=== PATIENT | male | born 1950 | race Caucasian/White ===

== ENCOUNTER 2017-06-05 11:10 | Emergency (ER) | payer OTHER, MEDICARE ==
[2017-06-05] MEDS ORDERED: NORMAL SALINE 1,000 ML IV ONE ×2 (11:19→12:18)
--- NOTE | 2017-06-05 11:28 | ERNOTE ---
Dizziness ER Record Presenting Symptoms: dizziness Time Seen by Provider: 06/05/17 11:10 Source: patient, family Exam Limitations: no limitations Immunizations: IMMUNIZATION HX Immunizations Up to Date Yes History of Influenza Vaccine Yes Hx Pneumococcal Vaccination No Allergies/Adverse Reactions: Allergies Allergy/AdvReac Type Severity Reaction Status Date / Time No Known Allergies Allergy Unverified 06/05/17 11:21 - History of Present Illness Narrative: Patient had been picking green beans in the hot,humid weather for over an hours when he started to feel lightheaded, had tunnel vision and felt that the light was too bright. He is brought in by his daughter who is concerned as he had two AR in the past. On repeated questioning he admits to slight chest pressure that is gone a couple of minutes later when laying down. Date (Duration): 06/05/17 Time (Timing): 10:30 Review of Systems - Review of Systems Constitutional: Absent: recent illness, fever, chills ENT: Absent: nose congestion Respiratory: Present: shortness of breath - slight. Absent: cough Cardiology: Present: See HPI Gastrointestinal/Abdominal: Absent: nausea, vomiting, abdominal pain Genitourinary: Present: no symptoms reported Musculoskeletal: Absent: back pain Skin: Absent: rash Neurological: Present: See HPI, dizziness/light-headedness - Patient's Past Medical History Patient History - Medical: No pertinent hx Patient History - Cardiac/Respiratory: Coronary Heart Disease, Hypertension, Hyperlipidemia Patient History - Cancer: Other - esophageal local removed in 01/2016 Patient History - Surgical Procedures: Cancer Surgery, Cholecystectomy, Coronary Bypass Surgery, Pacemaker Patient History - Other: None - Social History Living Situations: home Psych History: No pertinent hx Smoking Status: Current every day smoker Cigarettes Packs Per Day: 0.3 Alcohol Use: rarely Drug Use: none - Immunizations Immunizations Up to Date: Yes Hx Pneumococcal Vaccination: No History of Influenza Vaccine: Yes Physical Exam - Physical Exam General Appearance: Present: alert, no apparent distress Head Exam: Present: normal inspection Eye Exam: Normal inspection: bilateral Respiratory: Present: no respiratory distress, normal breath sounds, no accessory muscle use, lungs clear Cardiovascular/Chest: Present: regular rate, rhythm, no murmur Gastrointestinal/Abdominal: Present: nontender, nondistended Neurological Exam: Present: alert, oriented, normal mood/affect Skin Exam: Present: diaphoresis - shirt wet, pallor - [facility] ED Progress - Results and Orders Patient's Lab Results:: I have reviewed the patient's lab results. - Vital Signs Patient's Vital Signs:: I have reviewed the patient's vital signs. Vital Signs: Vital Signs 06/05/17 11:13 Temperature 35.7 C L Pulse Rate 77 Respiratory 13 Rate Blood Pressure 96/52 O2 Sat by Pulse 94 Oximetry - EKG EKG: NSR, other - poor R progression, Qinferior leads, no acute changes EKG read: Interp. by me - X-Ray X-Ray #1 X-Ray: chest - no acute Interpretation: Reviewed by me - Progress/Reassessment Chief Complaint: Dizziness Progress Note-Subjective: 06/05/17 12:32 patient feeling much better after IV and oral fluids, improved color discussed results Departure Clinical Impression: Heat exhaustion Qualifiers: Encounter type: initial encounter Qualified Code(s): T67.5XXA - Heat exhaustion , unspecified, initial encounter - Departure Disposition: Home self-care Condition: Good Instructions: Heat Exhaustion Information Additional Instructions: make sure to drink plenty of water and take breaks from being out in the heat follow up with your doctor as needed
[2017-06-05 11:43] LABS: Hematocrit 41.7 % (42.0-52.0); Hemoglobin 13.9 gm/dL (13.5-18.0); Mean Cell Volume 94.1 fl (78-100); Mean Corpuscular Hemoglobin 31.4 pg (27-31); Mean Corpuscular Hgb Conc 33.3 g/dl (32-36); Mean Platelet Volume 10.7 fl (6.0-9.5); Neutrophil # 5.8 K/mm3 (1.3-6.0); Neutrophil % 58.7 % (42-75.0); Platelet Count 221 K/mm3 (150-450); Red Blood Count 4.43 M/mm3 (4.7-6.0); Red Cell Distribution Width 13.5 % (11.5-14.0); White Blood Count 9.8 K/mm3 (4.0-10.5)
--- OUTSIDE RECORDS SUMMARY | 2017-06-05 11:52 | XMS REPORT | Continuity of Care Document ---
:1950 Author Organization [facility] [place] [address] Care Team Providers Name Role Phone Maty Coker Primary Care Provider [phone] Source Comments This disclosure is being made pursuant to the [employer]ing [employer] program and maynot contain all information available regarding this patient.[facility] Active Allergies and Adverse Reactions No Known Allergies Current Medications Be aware that medications may not be up to date as of this document. Alwaysverify current medications with the patient. Prescription Sig. Disp. Refills Start Date End Date Status atorvastatin (LIPITOR) 80 5 01/13/2016 Active MG tablet carvedilol (COREG) 6.25 5 01/13/2016 Active MG tablet fosinopril (MONOPRIL) 10 5 01/01/2016 Active MG tablet isosorbide mononitrate 3 12/22/2015 Active (IMDUR) 60 MG 24 hr tablet pantoprazole (PROTONIX) 1 01/01/2016 Active 20 MG tablet spironolactone 5 01/13/2016 Active (ALDACTONE) 25 MG tablet ciprofloxacin (CIPRO) 500 Take 1 tablet by 6 tablet 0 06/21/2016 Active MG tablet mouth 2 (two) times daily. Start taking the night prior to procedure. Active Problems Problem Noted Date Prostate mass 07/05/2016 Elevated prostate specific antigen (PSA) 01/22/2016 Social History Tobacco Use Types Packs/Day Years Used Date Current Some Day Smoker 0.25 15 Smokeless Tobacco: Never Used Alcohol Use Drinks/Week oz/Week Comments Yes socially Last Filed Vital Signs Vital Sign Reading Time Taken Blood Pressure 98/60 01/21/2016 11:25 AM [employer] Pulse 95 01/21/2016 11:25 AM [employer] Temperature 36.6 C (97.9 F) 01/21/2016 11:25 AM [employer] Respiratory Rate 22 01/21/2016 11:25 AM [employer] Height 1.638 m (5' 4.5") 01/21/2016 11:25 AM [employer] Weight 73.936 kg (163 lb) 01/21/2016 11:25 AM [employer] Body Mass Index 27.56 01/21/2016 11:25 AM [employer] Oxygen Saturation - - Plan of Care Health Maintenance Due Date Last Done Comments Hepatitis C Screening 1967 Tetanus/Pertussis (1 - Tdap) 1968 Colonoscopy 1999 Well Adult Visit 1999 Zoster Vaccine 60+ 2009 AAA Screening (Medicare Covered) 2014 Pneumococcal Low/Medium Risk 65+ (1 of 2 - PCV13) 2014 Influenza Immunization (#1) 2016 Results from Last 3 Months Not on file Insurance Payer Benefit Plan / Group Subscriber ID Type Phone Address MEDICARE MEDICARE A AND B [id number] [phone] [address] [place] [address] [employer]CIAL INSURANCE [id number] Home[address] [place], [place] [id number] [place] [phone]
[2017-06-05 11:54] LABS: ALT 20 U/L (19-67); AST 17 U/L (0-48); Albumin * 3.4 gm/dl (3.4-5.0); Alkaline Phosphatase * 69 U/L (50-170); Anion Gap 10.7 mmol/L (6.8-13.8); Bilirubin, Total 0.7 mg/dL (0.0-1.1); Blood Urea Nitrogen 21 mg/dL (6-23); Ca. Corrected For Albumin 8.8 mg/dL (8.4-10.2); Calcium * 8.6 mg/dL (7.9-10.9); Carbon Dioxide 28.5 mmol/L (24-32.6); Chloride 108 mmol/L (97-106); Glucose * 145 mg/dL (70-110); Potassium 4.2 mmol/L (3.4-4.6); Sodium 143 mmol/L (132-142); Total Protein 7.1 gm/dL (6.2-8.2); Troponin I Less than 0.017 ng/ml (0.00-0.10)
[2017-06-05 13:07] VITALS: BP 103/53
== END 2017-06-05 12:25 | disposition home or self-care (01) ==
LOC: ER 11:10
DX: T67.5XXA Heat exhaustion, unspecified, initial encounter (principal); Z72.0 Tobacco use